=== PATIENT | male | born 1980 | race African-American/Black ===

== ENCOUNTER 2017-03-26 11:14 | Inpatient (IN) | payer BC ==
[2017-03-26 11:37] LABS: Hematocrit 44 % (42-52); Hemoglobin 14.5 g/dl (14.0-18.0); Mean Corpuscular HGB Conc 33 g/dl (31-36); Mean Corpuscular Hemoglobin 29 pg (27-31); Mean Corpuscular Volume 87 fL (80-94); Mean Platelet Volume 8 um3 (7.4-10.4); Red Blood Count 5.08 10^6/ul (4.0-5.4); Red Cell Distribution Width 14 % (10.5-15); White Blood Count 5.6 10^3/ul (3.5-10.8)
[2017-03-26 11:52] LABS: ALT 14 U/L (7-52); AST 13 U/L (13-39); Albumin 4.3 g/dL (3.2-5.2); Alkaline Phosphatase 72 U/L (34-104); Anion Gap 6 mmol/L (2-11); BUN/Creatinine Ratio 11.5 (8-20); Blood Urea Nitrogen 11 mg/dL (6-24); CO2 Carbon Dioxide 25 mmol/L (22-32); Calcium 9.2 mg/dL (8.6-10.3); Chloride 106 mmol/L (101-111); EGFR African American 114.6 (>60); EGFR Non-African American 89.1 (>60); Globulin 3.2 g/dL (2-4); Glucose 107 mg/dL (70-100); Potassium 4.1 mmol/L (3.5-5.0); Sodium 137 mmol/L (133-145); Total Protein 7.5 g/dL (6.4-8.9)
[2017-03-26 12:13] LABS: Acetaminophen < 15 mcg/mL; Alcohol < 10 mg/dL (<10); Salicylate < 2.50 mg/dL (<30)
[2017-03-26 12:20] LABS: TSH (Thyroid Stimulating Horm) 0.38 mcIU/mL (0.34-5.60)
[2017-03-26 12:56] LABS: Urine Bilirubin Negative (Negative); Urine Glucose Negative (Negative); Urine Nitrite Negative (Negative)
[2017-03-26 13:15] LABS: Benzodiazepine Urine Screen None Detected (None Detect)
[2017-03-26] MEDS ORDERED: Acetaminophen TAB* 325 MG PO PRN (21:40)
[2017-03-26] MEDS ORDERED: Al Hydrox/Mg Hydrox/Simet LIQ* 30 ML UDC PO PRN (21:40)
[2017-03-26] MEDS: OLANzapine TAB* 10 MG PO SCH (21:53)
[2017-03-26] MEDS: Mirtazapine TAB* 15 MG PO SCH (21:53)
[2017-03-26] MEDS ORDERED: traZODone TAB* 50 MG TAB PO SCH (22:00)
[2017-03-27] MEDS ORDERED: FLUoxetine CAP* 10 MG PO SCH (09:00)
[2017-03-27] MEDS: Vitamin THERAPEUTIC TAB PO SCH (09:57)
[2017-03-27] MEDS ORDERED: Nicotine GUM* 2 MG PO PRN (12:07)
[2017-03-27] MEDS ORDERED: Mouth Piece, Nicotine* 1 EACH CARTRIDGE INH ONE (12:07)
[2017-03-27] MEDS ORDERED: hydrOXYzine HCL TAB* 50 MG PO PRN (12:08)
[2017-03-27] MEDS ORDERED: traZODone TAB* 50 MG TAB PO PRN (12:09)
[2017-03-27] MEDS: amLODIPine TAB* 5 MG PO SCH (14:20)
[2017-03-27] MEDS: Nicotine Inhaler* 10 MG AMP INH PRN (14:20)
[2017-03-27] MEDS: Nicotine PATCH 14 MG/24 HR* PATCH TRANSDERM SCH (14:21)
[2017-03-27] MEDS: Benztropine TAB* 2 MG PO SCH (14:25)
--- NOTE | 2017-03-27 15:58 | HP ---
HISTORY AND PHYSICAL: DATE OF ADMISSION: 03/26/17. SUPERVISING PSYCHIATRIST: Dr. Ajay Duran * (DICTATED BY CORY MENDOZA NP) JUSTIFICATION FOR ADMISSION: The patient is a resident of [facility] and reported to his counselor that he wanted to because he feels hopeless and helpless. He was positive for suicidal ideation with fleeting plans of hanging himself, stealing cleaning fluid, or slitting his wrist. Patient merits hospitalization for immediate safety and stabilization. CHIEF COMPLAINT: "I feel like this illness is slowly killing me." HISTORY OF PRESENT ILLNESS: Arturo who likes to go by [facility] is a 36-year-old male. He is currently residing at [facility] since March 12. He reports a long history of crack cocaine use and bipolar disorder and obsessive- compulsive disorder. [facility] states that OCD is most problematic for him. He describes obsessions and compulsions as particular word tasks and rituals in order to call the OCD. He states that if he does not complete these thoughts and rituals perfectly, then he has to start all over. He also reports that the chronic feeling of being overwhelmed by these thoughts and compulsions causes him to feel suicidal. As stated above while in [facility], he has had thoughts of hanging himself, stealing the cleaning fluid to drink, or slitting his wrist with a razor. [facility] reports history of bipolar disorder. He identifies that manic episodes include hyperactivity and grandiose delusions. He states that he has had a history of thinking he was unique and special, that he was a reincarnation of someone from the Bible or that he has special abilities. He states his last manic episode was approximately in 2002. He identifies that these are separate from substance use. He reports multiple periods of depression and that this is significantly intertwined with OCD symptoms. He goes on to describe that he is very subconscious about his OCD behaviors. He feels boxed within his mind. He says that he is embarrassed when he is in public. He cannot look to his left side because he feels like he is blocked by his left eye. He goes on to describe that this is related to seeing a psychiatrist in the past and he was very distraught about her opinion of him. [facility] is knowledgeable about other OCD symptoms and he denies the compulsion to organize his environment. He denies hand washing rituals, any checking behaviors. He reports a long history of suicidal ideation and attempts. He reports most recent attempt was in November of this year. He drank antifreeze and had to undergo dialysis. He has mild hypertension related to this overdose. He reports prior incidences of slitting his wrist in March 2013. Other attempts include trying to overdose on pills, drinking cleaning fluid, hanging himself, and banging his head while in senior living. He denies SIB behaviors. He denies eating disorder behaviors. His depressive symptoms include hopelessness , helplessness and guilt. He reports hypersomnia. He denies change in appetite and endorses overall depressed mood. He denies audio or visual hallucinations. He denied depersonalization or active delusions or phobias. He states that he has not been violent per se other than defending himself in some fights in senior living. PAST MEDICAL HISTORY: Hypertension due to the suicide attempt in November. He has had a history of seizures while taking Wellbutrin in 2003. He had a self- inflicted head injury while in senior living, but denies there was a LOC. PAST SURGICAL HISTORY: Multiple tendon repairs in his right wrist after he punched a window and wisdom teeth extraction. SUBSTANCE USE HISTORY: [facility] reports onset of substance use approximately age 20. He reports smoking marijuana and history of crack cocaine use. He states he drinks alcohol occasionally and when he does it is one or two 24-ounce cans a day. He states he has tried heroin once. Denies other substance use. His last alcohol was March 10. His last use of marijuana was in December or January of this year and his last use of crack cocaine was March 02 of this year. As stated above, he is currently residing in [facility] for dual diagnosis treatment since March 12. TREATMENT HISTORY: Includes inpatient at [facility] in 2014 and 2005 and the [facility] in 2004. PAST PSYCHIATRIC HISTORY: [facility] reports an extensive inpatient and outpatient psychiatric history. He has been inpatient at [facility] multiple times, most recent was in January of this year. He has also been hospitalized at [facility] and [facility] in [place]. [facility] states he has had outpatient mental health treatment at [facility] in [place] and [facility]. PREVIOUS PSYCHOPHARMACOLOGIC TRIALS: Include Anafranil, which caused mouth twitches and he felt like a zombie. Luvox which was ineffective, lithium, and Wellbutrin. TRAUMA ABUSE HISTORY: Brooks denies a history of physical, sexual abuse. His father is not in agreement with his homosexual identity and this is a source of conflict between the two of them. LEGAL HISTORY: Brooks states he has had multiple incarcerations, usually related to burglary due to his crack cocaine habit. His first incarceration was at 24 and most recent one was in [place] from September 2015 to June 2016. He denies current probation or parole. Past prisons include [place], [facility], [place], [place], and [facility]. He states he was not in [facility] as a child. He identifies as Restorationist and homosexual. He denies this is conflicting for him. He is not currently in a relationship. CURRENT MEDICATIONS: His medications that currently provided to him by [facility], they are: 1. Prozac 10 mg p.o. q.a.m. 2. Olanzapine 20 mg p.o. q.h.s. 3. Remeron 30 mg p.o. q.h.s. 4. Trazodone 50 mg p.o. q.h.s. 5. Cogentin 2 mg p.o. q.a.m. 6. Amlodipine 5 mg p.o. q.a.m. ALLERGIES: SULFA. FAMILY PSYCHIATRIC HISTORY: Mother was diagnosed with bipolar disorder. He has a paternal uncle with a vague mental illness and he suspects might be schizophrenia. He denies a family history of suicide or substance use. SOCIAL HISTORY: Brooks was raised in the [place] area. He graduated high school from [employer]. He went to college at [employer] for 1-1/2 semesters. He states he had a manic episode and returned home and then attended [employer] for a semester and a half. 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 REVIEW OF SYSTEMS: General: Patient denies any recent change in weight, appetite. Head: Negative. Eyes: Negative. Ears: Negative. Nose: Negative. Mouth and Throat: Negative. Neck: Negative. Respiratory: Negative. Cardiovascular: Negative. Gastrointestinal: Negative. Genitourinary: Negative. Neuromuscular: Negative. PHYSICAL EXAMINATION GENERAL: This is a 36-year-old male who appears well hydrated and appearance of his stated age. He denies pain or distress at this time. VITAL SIGNS: Most recent vital signs, temperature 98.5, pulse 74, respirations 16, O2 saturation of 98%, and BP 122/73. Height 6 feet, weight 173 pounds. HEENT: Head: Atraumatic, normocephalic, symmetrical and without deformities. Eyes: TRISTIN. EOMI bilaterally. Ears: External ear exam reveals no abnormalities. Hearing grossly normal. Mouth and Throat: Mucosa moist. Uvula midline. No difficulty swallowing. NECK: Trachea midline, freely mobile. Supple and nontender. LUNGS: Thorax, clear to auscultation. Breath sounds present. RESPIRATIONS: Normal and nonlabored. HEART: RRR. Peripheral pulses present bilateral extremities. ABDOMEN: Soft, nontender. Bowel sounds present in all 4 quadrants. SKIN: Appears well hydrated and well perfused. No rashes, cyanosis, or petechiae. MENTAL STATUS EXAM: Patient is cooperative and pleasant. He is dressed in his own clothing. He appears stated age. He sits on a bed and engages in interview. He is an excellent historian. Alert and oriented x3. Concentration is good. Memory is 3/3. His mood is "preoccupied." His affect is flat. Speech is stuttered and rapid. He often clears his throat. Thought process is circumstantial, positive for obsessions and suicidal ideation. He denies AH or VH. His insight is good. His judgment is good. His fund of knowledge is excellent. LABORATORY DATA: From the emergency room: CBC is within normal limits. His CMP is within normal limits. TSH is 0.38. Urinalysis is unremarkable. Toxicology is negative for salicylates, acetaminophen, and serum alcohol. His urine tox is negative for all substances tested. DIAGNOSES: [place] I: Bipolar I disorder; most recent episode depressed; obsessive- compulsive disorder; alcohol use disorder, mild, in early remission; crack cocaine use disorder, severe, in early remission; cannabis use disorder, moderate, in early remission. [place] II: Deferred. [place] III: Hypertension. [place] IV: Stressors related to severe and persistent mental illness, social isolation and conflicting relationship with his father. [place] V: 50. ASSESSMENT: Arturo is a 36-year-old male with good insight in to obsessive- compulsive disorder. He has a long history of crack cocaine use and legal sequelae. He is currently residing in [facility] and last engaged in polysubstance use this summer. He states that he is not comfortable with his current facility and would like to pursue other options as he is there voluntarily. We will reinstate current medications with the exception of changing trazodone to p.r.n. as he repots this causes daytime sedation. We will increase the fluoxetine to 20 mg to help target OCD symptoms and monitor closely for dwayne. We will also provide nicotine replacement for tobacco cessation. PLAN: Admit patient to adult behavioral services unit. He is on 9.39 status. His code status is full. We will observe q. 15-minute checks for safety and encourage therapeutic milieu, individual and group psychoeducation. May obtain MMPI for further clarification of diagnosis. We will obtain release of information and prior treatment summaries from [facility] and [facility]. We will monitor for mood and thought content. Discharge planning will involve [facility] and potentially making a referral to another facility. CORY MENDOZA NP [id number]/CPS #: [id number] KANDACE
--- NOTE | 2017-03-27 18:16 | ED ---
Alice Lizama Rebecca, scribed for Santi Tellez MD on 03/26/17 at 1136 . Psychiatric Complaint - HPI Summary HPI Summary: Pt is a 36 y/o M BIBA from [facility] who presents to ED c/o worsening depression and SIs. Reports that his depression felt "out of control" and told a counselor at [facility] about it, who called EMS. Reports having SIs for a year. States he has a plan to drink antifreeze in attempt to take his life. Sx aggravated and alleviated by nothing. Pt quit abusing cocaine and alcohol at the end of February. PMHx depression. - History Of Current Complaint Chief Complaint: [facility]MentalHealth Time Seen by Provider: 03/26/17 11:27 Hx Obtained From: Patient Onset/Duration: Still Present Timing: Weeks - A year Character: Depressed Aggravating Factor(s): Nothing Alleviating Factor(s): Nothing Associated Signs And Symptoms: Positive: Negative Related History: Positive For: Prior Psychiatric Issues - Depression Has Suicidal: Reports: Thoughts, With A Plan - Allergies/Home Medications Allergies/Adverse Reactions: Allergies Allergy/AdvReac Type Severity Reaction Status Date / Time Sulfa Antibiotics Allergy Mild Hives Verified 03/26/17 21:03 PMH/Surg Hx/FS Hx/Imm Hx Cardiovascular History: Reports: Hx Hypertension Psychiatric History: Reports: Hx Depression Infectious Disease History: No Infectious Disease History: Denies: Traveled Outside the [place] in Last 30 Days - Family History Known Family History: Negative: Hypertension - Social History Alcohol Use: Weekly Substance Use Type: Reports: Cocaine, Marijuana Smoking Status (MU): Current Every Day Smoker Review of Systems Negative: Fever Positive: Depressed, Other - SIs with a plan All Other Systems Reviewed And Are Negative: Yes Physical Exam - Summary Physical Exam Summary: VITAL SIGNS: Reviewed. GENERAL: ~Patient is a well-developed and nourished male who is lying comfortable in the stretcher. ~Patient is not in any acute respiratory distress. HEAD AND FACE: No signs of trauma. ~No ecchymosis, hematomas or skull depressions. No sinus tenderness. EYES: PERRLA, EOMI x 2, No injected conjunctiva, no nystagmus. EARS: Hearing grossly intact. Ear canals and tympanic membranes are within normal limits. MOUTH: Oropharynx within normal limits. NECK: Supple, trachea is midline, no adenopathy, no JVD, no carotid bruit, no c- spine tenderness, neck with full ROM. CHEST: Symmetric, no tenderness at palpation LUNGS: Clear to auscultation bilaterally. No wheezing or crackles. CVS: Regular rate and rhythm, S1 and S2 present, no murmurs or gallops appreciated. ABDOMEN: Soft, non-tender. No signs of distention. No rebound no guarding, and no masses palpated. Bowel sounds are normal. EXTREMITIES: FROM in all major joints, no edema, no cyanosis or clubbing. NEURO: Alert and oriented x 3. No acute neurological deficits. Speech is normal and follows commands. SKIN: Dry and warm PSYCH: Depressed, quiet. Reports suicidal thoughts. No homicidal thoughts or plan. No signs of psychosis or pressure speech. No tangential speech. Triage Information Reviewed: Yes Vital Signs On Initial Exam: Initial Vitals Temp Pulse Resp BP Pulse Ox 98.1 F 74 16 127/80 98 03/26/17 11:23 03/26/17 11:23 03/26/17 11:23 03/26/17 11:23 03/26/17 11:23 Vital Signs Reviewed: Yes - Jones Coma Scale Coma Scale Total: 15 Diagnostics - Vital Signs Vital Signs Temp Pulse Resp BP Pulse Ox 03/26/17 11:23 98.1 F 74 16 127/80 98 - Laboratory Lab Results: Lab Results 03/26/17 03/26/17 03/26/17 Range/Units 11:18 11:18 12:45 WBC 5.6 (3.5-10.8) 10^3/ul RBC 5.08 (4.0-5.4) 10^6/ul Hgb 14.5 (14.0-18.0) g/dl Hct 44 (42-52) % MCV 87 (80-94) fL MCH 29 (27-31) pg MCHC 33 (31-36) g/dl RDW 14 (10.5-15) % Plt Count 250 (150-450) 10^3/ul MPV 8 (7.4-10.4) um3 Neut % (Auto) 65.1 (38-83) % Lymph % (Auto) 22.7 L (25-47) % [place] % (Auto) 8.0 (1-9) % Eos % (Auto) 2.9 (0-6) % Baso % (Auto) 1.3 (0-2) % Absolute Neuts (auto) 3.6 (1.5-7.7) 10^3/ul Absolute Lymphs (auto) 1.3 (1.0-4.8) 10^3/ul Absolute Monos (auto) 0.4 (0-0.8) 10^3/ul Absolute Eos (auto) 0.2 (0-0.6) 10^3/ul Absolute Basos (auto) 0.1 (0-0.2) 10^3/ul Absolute Nucleated RBC 0 10^3/ul Nucleated RBC % 0.1 Sodium 137 (133-145) mmol/L Potassium 4.1 (3.5-5.0) mmol/L Chloride 106 (101-111) mmol/L Carbon Dioxide 25 (22-32) mmol/L Anion Gap 6 (2-11) mmol/L BUN 11 (6-24) mg/dL Creatinine 0.96 (0.67-1.17) mg/dL Est GFR ( Amer) 114.6 (>60) Est GFR (Non-Af Amer) 89.1 (>60) BUN/Creatinine Ratio 11.5 (8-20) Glucose 107 H (70-100) mg/dL Calcium 9.2 (8.6-10.3) mg/dL Total Bilirubin 0.40 (0.2-1.0) mg/dL AST 13 (13-39) U/L ALT 14 (7-52) U/L Alkaline Phosphatase 72 (34-104) U/L Total Protein 7.5 (6.4-8.9) g/dL Albumin 4.3 (3.2-5.2) g/dL Globulin 3.2 (2-4) g/dL Albumin/Globulin Ratio 1.3 (1-3) TSH 0.38 (0.34-5.60) mcIU/mL Urine Color Straw Urine Appearance Clear Urine pH 6.0 (5-9) Ur Specific [place] 1.008 L (1.010-1.030) Urine Protein Negative (Negative) Urine Ketones Negative (Negative) Urine Blood Negative (Negative) Urine Nitrate Negative (Negative) Urine Bilirubin Negative (Negative) Urine Urobilinogen Negative (Negative) Ur Leukocyte Esterase Negative (Negative) Urine Glucose Negative (Negative) Salicylates < 2.50 (<30) mg/dL Urine Opiates Screen (None Detect) Acetaminophen < 15 mcg/mL Ur Barbiturates Screen (None Detect) Ur Phencyclidine Scrn (None Detect) Ur Amphetamines Screen (None Detect) U Benzodiazepines Scrn (None Detect) Urine Cocaine Screen (None Detect) U Cannabinoids Screen (None Detect) Serum Alcohol < 10 (<10) mg/dL 03/26/17 Range/Units 12:45 WBC (3.5-10.8) 10^3/ul RBC (4.0-5.4) 10^6/ul Hgb (14.0-18.0) g/dl Hct (42-52) % MCV (80-94) fL MCH (27-31) pg MCHC (31-36) g/dl RDW (10.5-15) % Plt Count (150-450) 10^3/ul MPV (7.4-10.4) um3 Neut % (Auto) (38-83) % Lymph % (Auto) (25-47) % [place] % (Auto) (1-9) % Eos % (Auto) (0-6) % Baso % (Auto) (0-2) % Absolute Neuts (auto) (1.5-7.7) 10^3/ul Absolute Lymphs (auto) (1.0-4.8) 10^3/ul Absolute Monos (auto) (0-0.8) 10^3/ul Absolute Eos (auto) (0-0.6) 10^3/ul Absolute Basos (auto) (0-0.2) 10^3/ul Absolute Nucleated RBC 10^3/ul Nucleated RBC % Sodium (133-145) mmol/L Potassium (3.5-5.0) mmol/L Chloride (101-111) mmol/L Carbon Dioxide (22-32) mmol/L Anion Gap (2-11) mmol/L BUN (6-24) mg/dL Creatinine (0.67-1.17) mg/dL Est GFR ( Amer) (>60) Est GFR (Non-Af Amer) (>60) BUN/Creatinine Ratio (8-20) Glucose (70-100) mg/dL Calcium (8.6-10.3) mg/dL Total Bilirubin (0.2-1.0) mg/dL AST (13-39) U/L ALT (7-52) U/L Alkaline Phosphatase (34-104) U/L Total Protein (6.4-8.9) g/dL Albumin (3.2-5.2) g/dL Globulin (2-4) g/dL Albumin/Globulin Ratio (1-3) TSH (0.34-5.60) mcIU/mL Urine Color Urine Appearance Urine pH (5-9) Ur Specific [place] (1.010-1.030) Urine Protein (Negative) Urine Ketones (Negative) Urine Blood (Negative) Urine Nitrate (Negative) Urine Bilirubin (Negative) Urine Urobilinogen (Negative) Ur Leukocyte Esterase (Negative) Urine Glucose (Negative) Salicylates (<30) mg/dL Urine Opiates Screen None detected (None Detect) Acetaminophen mcg/mL Ur Barbiturates Screen None detected (None Detect) Ur Phencyclidine Scrn None detected (None Detect) Ur Amphetamines Screen None detected (None Detect) U Benzodiazepines Scrn None detected (None Detect) Urine Cocaine Screen None detected (None Detect) U Cannabinoids Screen None detected (None Detect) Serum Alcohol (<10) mg/dL Result Diagrams: 03/26/17 11:18 03/26/17 11:18 Lab Statement: Any lab studies that have been ordered have been reviewed, and results considered in the medical decision making process. Course/Dx - Course Assessment/Plan: Pt is a 36 y/o M BIBA from [facility] who presents to ED c/o worsening depression and SIs. Reports that his depression felt "out of control" and told a counselor at [facility] about it, who called EMS. Reports having SIs for a year. States he has a plan to drink antifreeze in attempt to take his life. Sx aggravated and alleviated by nothing. Pt quit abusing cocaine and alcohol at the end of February. PMHx depression. Pt medically cleared for MHE at 1204. The pt is hemodynamically stable and A&Ox3. Dr. Duran, psychiatrist, performed MHE after which he has decided that the pt will be admitted. He is A&Ox3 and hemodynamically stable. - Differential Dx/Clinical Impression Differential Diagnosis/HQI/PQRI: Positive: Anxiety, Depression, Suicidal Ideation, Suicidal Gesture Provider Diagnosis: Psychotic disorder Discharge - Discharge Plan Condition: Stable Disposition: ADMITTED TO [facility] documentation as recorded by the Alice isidro Rebecca accurately reflects the service I personally performed and the decisions made by , Santi Tellez MD.
[2017-03-27] MEDS: OLANzapine TAB* 10 MG PO SCH (20:27)
[2017-03-27] MEDS: Mirtazapine TAB* 15 MG PO SCH (20:27)
[2017-03-27] MEDS: Nicotine Patch Removal NOTE PATCH OFF SCH (21:37)
[2017-03-28] MEDS: amLODIPine TAB* 5 MG PO SCH (08:26)
[2017-03-28] MEDS: Benztropine TAB* 2 MG PO SCH (08:26)
[2017-03-28] MEDS: FLUoxetine CAP* 20 MG PO SCH (08:26)
[2017-03-28] MEDS: Vitamin THERAPEUTIC TAB PO SCH (08:26)
[2017-03-28] MEDS: Nicotine Inhaler* 10 MG AMP INH PRN ×2 (08:30→21:50)
[2017-03-28] MEDS: Nicotine PATCH 14 MG/24 HR* PATCH TRANSDERM SCH (09:20)
[2017-03-28] MEDS: Mirtazapine TAB* 15 MG PO SCH (21:48)
[2017-03-28] MEDS: OLANzapine TAB* 10 MG PO SCH (21:49)
[2017-03-28] MEDS: Nicotine Patch Removal NOTE PATCH OFF SCH (21:50)
[2017-03-29] MEDS: FLUoxetine CAP* 20 MG PO SCH (10:15)
[2017-03-29] MEDS: amLODIPine TAB* 5 MG PO SCH (10:15)
[2017-03-29] MEDS: Vitamin THERAPEUTIC TAB PO SCH (10:15)
[2017-03-29] MEDS: Benztropine TAB* 2 MG PO SCH (10:15)
[2017-03-29] MEDS: Nicotine PATCH 14 MG/24 HR* PATCH TRANSDERM SCH (10:16)
--- NOTE | 2017-03-29 15:13 | PN ---
Subjective - Subjective Service Type: 31454 Hosp care 15 min low complexity Subjective: Arturo has been in his room avoiding groups or other activities on the unit because he thinks they don't help. He is blaming his mental illness for using drugs that's why he left [facility] and doesn't want to go back. Complaining of feeling unmotivated and having suicidal thoughts. Hopes he goes to sleep and never wake up again. Tolerating current meds and willing to try [place]. Objective - Appearance Appearance: Healthy Appearing Dysmorphic Features: No Hygiene: Mal-odorous Grooming: Disheveled - Behavior Psychomotor Activities: Abnormal-Decreased Exhibits Abnormal Movement: No - Attitude and Relatedness Attitude and Relatedness: Superficially Cooperative Eye Contact: Fair - Speech Quality: Unpressured Latencies: Normal Quantity: Appropriate - Mood Patient's Decription of Mood: "Okay" - Affect Observed Affect: Depressed - Thought Process Patient's Thought Process: Coherent, Goal Directed Thought Content: Yes Passive Wish, No Suicidal Planning, No Homicidal Ideation, No Paranoid Ideation - Sensorium Experiencing Hallucinations: No, Sensorium is Clear Type of Hallucinations: Visual: No, Auditory: No, Command: No - Level of Consciousness Level of Consciousness: Alert Orientation: Yes Intact, Yes Orientated to Time, Yes Orientated to Place, Yes Orientated to Person - Impulse Control Impulse Control: Tenuous - Insight and Judgement Insight and Judgement: Poor - Group Participation Particating in Group Activities: No - Medication Management Medication Management Adherence: Yes Assessment - Assessment Merits Inpatient Hospitalization: For Stabilization, For Discharge Planning Inpatient DSM-IV Dx: Substance induced mood d/o. Cocain use d/o Clinical Impression: Patient continues to verbalize passive suicidal thoughts. Plan - Plan Treatment Plan: Name: ARTURO HICKEY Birthdate: 1980 [id number] Continued Medication Management: Continue Outpt Medication Medications: Current Medications Acetaminophen (Tylenol Tab*) 650 mg PO Q4H PRN PRN Reason: PAIN or TEMP > 101 F Al Hydrox/Mg Hydrox/Simethicone (Maalox Plus*) 30 ml PO Q4H PRN PRN Reason: INDIGESTION Amlodipine Besylate (Norvasc Tab*) 5 mg PO DAILY [facility] Last Admin: 03/29/17 10:15 Dose: 5 mg Benztropine Mesylate (Cogentin Tab*) 2 mg PO DAILY [facility] Last Admin: 03/29/17 10:15 Dose: 2 mg Fluoxetine HCl (Prozac Cap*) 20 mg PO QAM [facility] Last Admin: 03/29/17 10:15 Dose: 20 mg Hydroxyzine HCl (Atarax Tab*) 50 mg PO Q6H PRN PRN Reason: AGITATION/ANXIETY Mirtazapine (Remeron Tab*) 30 mg PO BEDTIME [facility] Last Admin: 03/28/17 21:48 Dose: 30 mg Multivitamins (Theragran Tab*) 1 tab PO DAILY [facility] Last Admin: 03/29/17 10:15 Dose: 1 tab Nicotine (Nicotine Inhaler*) 10 mg INH Q2H PRN PRN Reason: CRAVING Last Admin: 03/28/17 21:50 Dose: 10 mg Nicotine (Nicotine Patch 14 Mg/24 Hr*) 1 patch TRANSDERM DAILY [facility] Last Admin: 03/29/17 10:16 Dose: Not Given Nicotine Polacrilex (Nicotine Gum*) 2 mg PO Q2H PRN PRN Reason: CRAVING Olanzapine (Zyprexa Tab*) 20 mg PO BEDTIME [facility] Last Admin: 03/28/17 21:49 Dose: 20 mg Pharmacy Profile Note (Nicotine Patch Removal Note*) 1 note PATCH OFF 2100 [facility] Last Admin: 03/28/17 21:50 Dose: Not Given Trazodone HCl (Desyrel Tab*) 50 mg PO BEDTIME PRN PRN Reason: INSOMNIA - Discharge Plan Discharge Plan: Drug/Alcohol Rehab Outpatient Program: TBD
[2017-03-29] MEDS: Nicotine Inhaler* 10 MG AMP INH PRN (21:02)
[2017-03-29] MEDS: OLANzapine TAB* 10 MG PO SCH (21:03)
[2017-03-29] MEDS: Mirtazapine TAB* 15 MG PO SCH (21:03)
[2017-03-29] MEDS: Nicotine Patch Removal NOTE PATCH OFF SCH (21:07)
[2017-03-30] MEDS: Nicotine PATCH 14 MG/24 HR* PATCH TRANSDERM SCH (10:28)
[2017-03-30] MEDS: Benztropine TAB* 2 MG PO SCH (10:28)
[2017-03-30] MEDS: Vitamin THERAPEUTIC TAB PO SCH (10:28)
[2017-03-30] MEDS: FLUoxetine CAP* 20 MG PO SCH (10:28)
[2017-03-30] MEDS: amLODIPine TAB* 5 MG PO SCH (10:28)
--- NOTE | 2017-03-30 15:10 | PN ---
Subjective - Subjective Subjective: Patient reports he spent most of the weekend sleeping in order to avoid compulsions. He states he must complete a particular word task and that "everything is riding on it." He states he feels "out of sorts, spaced out." He declines suggestions of additional medications. Patient reports desire to purse another agency for mental health treatment. Objective - Appearance Appearance: Well Developed/Nourished Dysmorphic Features: Yes Hygiene: Normal Grooming: Fairly Well Kept - Behavior Psychomotor Activities: Normal Exhibits Abnormal Movement: No - Attitude and Relatedness Attitude and Relatedness: Withdrawn Eye Contact: Good - Speech Quality: Unpressured - stutter Latencies: Normal Quantity: Appropriate - Mood Patient's Decription of Mood: "out of sorts" - Affect Observed Affect: Depressed Affect Consistent with: Dysphoria - Thought Process Patient's Thought Process: Circumstantial - compulsions to complete word tasks Thought Content: Yes Passive Wish, No Suicidal Planning, No Homicidal Ideation, No Paranoid Ideation - Sensorium Experiencing Hallucinations: No, Sensorium is Clear Type of Hallucinations: Visual: No, Auditory: No, Command: No - Level of Consciousness Level of Consciousness: Alert Orientation: Yes Intact, Yes Orientated to Time, Yes Orientated to Place, Yes Orientated to Person - Impulse Control Impulse Control: Intact - Insight and Judgement Insight and Judgement: Fair - Group Participation Particating in Group Activities: No - Medication Management Medication Management Adherence: Yes Assessment - Assessment Merits Inpatient Hospitalization: For Immediate Safety, For Discharge Planning Inpatient DSM-IV Dx: Substance induced mood d/o. Cocain use d/o Clinical Impression: Patient is a 36yo male with history of bipolar d/o, OCD and polysubstance use. He is a resident of [facility] due to recent cocaine use. He cites OCD as a trigger for substance use and suicidality. He would like to pursue another agency to target mental illness. Plan - Plan Treatment Plan: Name: CECE HICKEY Birthdate: 1980 [id number] Continue current medications as patient declines suggestions for suicidality or OCD. Decrease observation to q30 min. Discharge planning will involve [facility] staff and return to residential, likely 03/31/17. Continued Medication Management: Consider Medication Medications: Current Medications Acetaminophen (Tylenol Tab*) 650 mg PO Q4H PRN PRN Reason: PAIN or TEMP > 101 F Al Hydrox/Mg Hydrox/Simethicone (Maalox Plus*) 30 ml PO Q4H PRN PRN Reason: INDIGESTION Amlodipine Besylate (Norvasc Tab*) 5 mg PO DAILY [facility] Last Admin: 03/30/17 10:28 Dose: 5 mg Benztropine Mesylate (Cogentin Tab*) 2 mg PO DAILY [facility] Last Admin: 03/30/17 10:28 Dose: 2 mg Fluoxetine HCl (Prozac Cap*) 20 mg PO QAM [facility] Last Admin: 03/30/17 10:28 Dose: 20 mg Hydroxyzine HCl (Atarax Tab*) 50 mg PO Q6H PRN PRN Reason: AGITATION/ANXIETY Mirtazapine (Remeron Tab*) 30 mg PO BEDTIME [facility] Last Admin: 03/29/17 21:03 Dose: 30 mg Multivitamins (Theragran Tab*) 1 tab PO DAILY [facility] Last Admin: 03/30/17 10:28 Dose: 1 tab Nicotine (Nicotine Inhaler*) 10 mg INH Q2H PRN PRN Reason: CRAVING Last Admin: 03/29/17 21:02 Dose: 10 mg Nicotine (Nicotine Patch 14 Mg/24 Hr*) 1 patch TRANSDERM DAILY [facility] Last Admin: 03/30/17 10:28 Dose: Not Given Nicotine Polacrilex (Nicotine Gum*) 2 mg PO Q2H PRN PRN Reason: CRAVING Olanzapine (Zyprexa Tab*) 20 mg PO BEDTIME [facility] Last Admin: 03/29/17 21:03 Dose: 20 mg Pharmacy Profile Note (Nicotine Patch Removal Note*) 1 note PATCH OFF 2099 [facility] Last Admin: 03/29/17 21:07 Dose: Not Given Trazodone HCl (Desyrel Tab*) 50 mg PO BEDTIME PRN PRN Reason: INSOMNIA - Discharge Plan Discharge Plan: Drug/Alcohol Rehab Outpatient Program: [facility]
[2017-03-30] MEDS: Nicotine Patch Removal NOTE PATCH OFF SCH (20:32)
[2017-03-30] MEDS: Mirtazapine TAB* 15 MG PO SCH (20:32)
[2017-03-30] MEDS: OLANzapine TAB* 10 MG PO SCH (20:32)
[2017-03-31 08:32] VITALS: BP 134/87
[2017-03-31] MEDS: amLODIPine TAB* 5 MG PO SCH (10:09)
[2017-03-31] MEDS: Vitamin THERAPEUTIC TAB PO SCH (10:09)
[2017-03-31] MEDS: Benztropine TAB* 2 MG PO SCH (10:10)
[2017-03-31] MEDS: Nicotine PATCH 14 MG/24 HR* PATCH TRANSDERM SCH (10:10)
[2017-03-31] MEDS: FLUoxetine CAP* 20 MG PO SCH (10:10)
--- NOTE | 2017-03-31 15:09 | DS ---
CC: [facility]* DATE OF ADMISSION: 03/26/2017. DATE OF DISCHARGE: 03/31/2017. SUPERVISING PSYCHIATRIST: Dr. Ajay Duran* (dictated by POLA Ramirez) . DISCHARGE DIAGNOSES: AXIS I: Bipolar I disorder, most recent episode depressed, OCD, alcohol use disorder, and cocaine use disorder. AXIS II: Deferred. AXIS III: Hypertension. AXIS IV: Stressors related to persistent mental illness, substance use, and current housing. AXIS V: 50. CONDITION AT TIME OF DISCHARGE: Improved, somewhat guarded. Arturo has denied suicidal ideation to staff. He reports that he primarily wants care for his mental illness and refers to obsessive compulsive disorder, specifically he wants to be able to complete word tasks. He states that he also wants to be able to be rid of this compulsion and be able to move on "with his life." Arturo attempted to barter with check writer salesperson and with operations planner. He states he has poor insight into discharge planning and the need for returning to [facility]. He is voluntary there and states understanding that he can work with the staff there to identify treatment facility more specific for OCD. He was encouraged multiple times to identify sources with staff for CBT options. Arturo was encouraged to participate fully in the program at [facility] to gain full benefit. He expressed that he did not feel comfortable there due to other peers making fun of him and felt that it was a hostile environment. This check writer salesperson and operations planner encouraged him to discuss this with staff members as this is something that they need to know in order to address. At time of discharge, Arturo was presenting with panic. He took a Hydroxyzine upon the suggestion of this check writer salesperson. He was able to calm and organize himself and [facility] to [facility] by nursing staff. MENTAL STATUS EXAM: Brooks is tall, moderately-framed, 36-year-old who appears well hydrated and appears his stated age. He is alert and oriented times three , cooperative. He is sitting up in his bed. No psychomotor abnormalities. His is cooperative, somewhat defensive, but receptive to staff suggestions with full explanations. Concentration is good. His recall is 3/3. His mood is "anxious." His affect is restricted. Speech is normal volume with some stuttering. Formal thought is circumstantial in regards to wanting new placement from [facility]. His content of thought is positive for preoccupations and compulsions. He denies AH and VH. Has has persistent SI related to obsessive thoughts. He denies HI or . His insight is fair. His judgment is good. His fund of knowledge is excellent. INSTRUCTIONS GIVEN TO PATIENT: He was discharged back to [facility]. Electronic prescriptions were sent to [facility] in [place] as they deliver to [facility]: Benztropine 2 mg p.o. daily, 14 day supply; Fluoxetine 20 mg p.o. q.a.m. , quantity 14; Mirtazapine 30 mg p.o. at bedtime, quantity 14; Hydroxyzine 50 mg p.o. q.6 hours prn anxiety or agitation, quantity 28; Trazodone 50 mg p.o. at bedtime, quantity 14. Tobacco cessation will be supplied by [facility]. His diet is regular. His activity is as tolerated. There are no pending labs or diagnostic studies at the time of discharge. Follow-up care: Needs to return to [facility] where he receives [facility] programming. He is instructed to work with staff there to identify potential treatment facilities to target obsessive compulsive disorder in his catchment area near [place], [place]. HOSPITAL COURSE: Reason for admission: The patient is a resident of [facility] and reported to his counselor that he wanted to because he feels hopeless and helpless. He was positive for suicidal ideation with fleeting plans of hanging himself, stealing cleaning fluid, or slitting his wrists. Psychiatric treatment rendered: The patient was admitted to the Adult Behavioral Services Unit on 939 status. His code status was full. He was observed every 15 minutes for safety and encouraged to participate in therapeutic milieu and individual and group psychoeducation. During his stay here, he was medication compliant. He declined offers of new medications to treat OCD or suicidal ideation. He was seclusive to room, to not participate in groups or programming, was minimally interactive with staff. He continued to endorse suicidal ideation upon return to [facility], but denied suicidal ideation while on this unit. Discharge planning stayed in contact with [facility] and identified that he is welcome to return. The patient expressed concern about this need to complete word tasks perfectly, states that he would like to resolve this. He was informed that this is a short- term acute unit and was encouraged multiple times to identify resources from his home area to treat OCD , most likely in an outpatient setting. The patient was informed multiple times of the discharge plan to return to [facility] in order to participate in that program and identify further resources. The patient was decreased to 30 minute checks. He was safe on all checks. He retains an elevated risk of suicide due to suicidal history with increasing lethality. It will be important for his place of residence to monitor closely. He was encouraged multiple times to discuss with [facility] staff options for him for treatment in the [facility] as this was his primary stressor that led to admission. CORY MENDOZA NP [id number]/[facility]PS #: [id number] KANDACE
== END 2017-03-31 11:45 | DRG 753 ==
LOC: ED 11:14 → BSU 19:23
PROVIDERS: ADMIT Psychiatry & Neurology Psychiatry; ATTEND Psychiatry & Neurology Psychiatry
DX: F31.30 Bipolar disorder, current episode depressed, mild or moderate severity, unspecified (principal); R45.851 Suicidal ideations; I10 Essential (primary) hypertension; F42.9 Obsessive-compulsive disorder, unspecified; F10.10 Alcohol abuse, uncomplicated; F14.10 Cocaine abuse, uncomplicated; Z79.899 Other long term (current) drug therapy; Z88.2 Allergy status to sulfonamides; Z81.8 Family history of other mental and behavioral disorders; Z81.3 Family history of other psychoactive substance abuse and dependence
CPT/HCPCS: 36415; 80053; 80307; 80320; 80329; 81003; 84443; 85025; 99222; 99231; 99238; A9270-GY; G0480